=== PATIENT | female | born 1995 | race African-American/Black ===

== ENCOUNTER 2022-07-30 09:02 | Emergency (ER) | payer BC, SELFPAY ==
--- NOTE | ~2022-07-30 | XR_ITS ---
EXAMINATION: XR chest 2V 07/30/2022 09:43 INDICATION: Midline chest pain. PROCEDURE: 2 view chest COMPARISON: 05/14/2022 FINDINGS: The lungs are clear. The cardiomediastinal silhouette is within normal limits. There are no pleural effusions. There is no pneumothorax suspected. IMPRESSION: 1: NO ACUTE CARDIOPULMONARY DISEASE. Reviewed, dictated and finalized at location D.
--- NOTE | 2022-07-30 09:02 | ECG_ITS ---
Measurements Intervals [place] Rate: 88 P: 40 AL: 155 QRS: 70 QRSD: 74 T: 34 QT: 347 QTc: 421 Interpretive Statements SINUS RHYTHM DELAYED PRECORDIAL R/S TRANSITION BORDERLINE T WAVE ABNORMALITY- ANTERIOR LEADS BORDERLINE ECG NO PREVIOUS ECG AVAILABLE FOR COMPARISON Electronically Signed On 07-30-2022 9:33:19 CDT by Jairo Bah D.O.
[2022-07-30 09:08] VITALS: BP 144/99; PULSE 86; PULSE 90; PULSE 93; RESP 16; RESP 22; TEMP 36.8; O2SAT 100
[2022-07-30] MEDS: ASPIRIN 81 MG CHEWABLE TABLET 324 MG PO (09:16)
[2022-07-30 09:18] VITALS: O2SAT 100
--- NOTE | 2022-07-30 09:21 | ED.CHESTPAIN ---
HPI - Chest Pain General Chief Complaint: Chest Pain <CATHRYN Ortiz Last Filed: 07/30/22 11:03> Stated Complaint: chest pain <CATHRYN Ortiz Last Filed: 07/30/22 11:03> Time Seen by Provider: 07/30/22 09:03 <Mouna Galaviz PA-C - Last Filed: 07/30/22 11:03> History of Present Illness HPI narrative: 27-year-old female reports for evaluation of chest pain that occurred just prior to arrival. 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 States she thought it was due to her bra. She is unable to describe the pain, however states it lasted about 15 minutes this has since resolved. She states she wanted to come to the emergency department to make sure everything was okay. She does report feeling increasingly stressed since her mother about 1 year ago last May. She denies anxiety, cough, congestion, shortness of breath, fever, back pain, urinary complaints. <Mouna Galaviz PA-C - Last Filed: 07/30/22 11:03> Related Data Allergies/Adverse Reactions: Allergies Allergy/AdvReac Type Severity Reaction Status Date / Time Penicillins Allergy Rash Verified 07/30/22 09:17 <CATHRYN Ortiz Last Filed: 07/30/22 11:03> Review of Systems Review of Systems: CONSTITUTIONAL: Denies fever, chills EYES: Denies visual changes, redness, or discharge. ENT: Denies rhinorrhea, congestion, sore throat, or otalgia. CARDIOVASCULAR: See HPI RESPIRATORY: Denies cough or dyspnea. GASTROINTESTINAL: Denies abdominal pain, nausea, vomiting, or diarrhea. GENITOURINARY: Denies dysuria or hematuria. SKIN: Denies rash or itching. MUSCULOSKELETAL: Denies back pain, joint pain, or myalgia. NEUROLOGIC: Denies headache, numbness, dizziness, or weakness. PSYCHIATRIC: Denies anxiety or depression. <CATHRYN Ortiz Last Filed: 07/30/22 11:03> Exam Narrative: GENERAL: Well-appearing, in no acute distress. Patient resting on room and examined. She is pleasant and conversational. HEAD: Normocephalic EYES: PERRLA ENT: Nares clear. Mucous membranes moist. Oropharynx without tonsillar hypertrophy exudate or other lesions. NECK: Supple. CHEST: No respiratory distress. Clear to auscultation, no adventitious breath sounds. HEART: Regular rate and rhythm. No murmur heard. Normal peripheral pulses. ABDOMEN: Soft, nontender, normal active bowel sounds. EXTREMITIES: Normal range of motion. No edema. SKIN: Warm, dry, no rash. NEURO: No focal deficits. Alert and oriented x3. PSYCH: Normal mood and affect. <Mouna Galaviz PA-C - Last Filed: 07/30/22 11:03> Course CL[employer] AND WATCH ASSEMBLER/PA Physician Supervision For this patient encounter, I reviewed the CLOCK AND WATCH ASSEMBLER or PA documentation, treatment plan, and I was responsible for the medical decision making; and I had [id number] time with this patient. <Luiz Nunez MD - Last Filed: 07/31/22 11:58> Vital Signs Vital signs: Vital Signs Temperature 98.3 F 07/30/22 09:08 Pulse Rate 90 07/30/22 09:08 Respiratory Rate 22 H 07/30/22 09:08 Blood Pressure 144/99 H 07/30/22 09:08 Pulse Oximetry 100 07/30/22 09:08 Oxygen Delivery Room Air 07/30/22 09:08 Temperature 98.3 F 07/30/22 09:08 Pulse Rate 86 07/30/22 11:14 Respiratory Rate 19 07/30/22 11:14 Blood Pressure 123/77 07/30/22 11:14 Pulse Oximetry 100 07/30/22 11:14 Oxygen Delivery Room Air 07/30/22 09:18 <Mouna Galaviz PA-C - Last Filed: 07/30/22 11:03> Vital Signs Temperature 98.3 F 07/30/22 09:08 Pulse Rate 90 07/30/22 09:08 Respiratory Rate 22 H 07/30/22 09:08 Blood Pressure 144/99 H 07/30/22 09:08 Pulse Oximetry 100 07/30/22 09:08 Oxygen Delivery Room Air 07/30/22 09:08 Temperature 98.3 F 07/30/22 09:08 Pulse Rate 86 07/30/22 11:14 Respiratory Rate 19 05
[2022-07-30 09:28] LABS: Basophils Percent Auto 0.2 % (0.2-1.2); Eosinophils Percent Auto 0.3 % (0-4.4); Hematocrit 40.1 % (37.0-47.0); Hemoglobin 12.6 g/dL (12.0-15.0); Immature Granulocyte Absolute 0.02 K/mm3 (0.00-0.031); Immature Granulocyte Percent A 0.3 % (0-0.5); Lymphocytes Absolute Auto 1.67 K/mm3 (0.9-3.2); Lymphocytes Percent Auto 27.4 % (18.3-44.2); Mean Corpuscular HGB Conc 31.4 g/dl (32-36); Mean Corpuscular Hemoglobin 28.1 pg (26-34); Mean Corpuscular Volume 89.5 fl (80-100); Mean Platelet Volume 10.2 fl (7.4-10.4); Monocytes Absolute Auto 0.4 K/mm3 (0.1-0.6); Monocytes Percent Auto 6.4 % (2.6-8.5); Neutrophils Percent Auto 65.4 % (45.5-73.1); Platelet Count Result 270 k/mm3 (150-375); Red Blood Count 4.48 M/mm3 (4.2-5.4); Red Cell Distribution Width 14.1 % (11.5-14.5); White Blood Count 6.1 K/mm3 (4.5-10.0)
[2022-07-30 09:37] LABS: INR 0.9; Prothrombin Time 12.5 Seconds (11.1-14.7)
[2022-07-30 09:38] LABS: Partial Thromboplastin Time 26.6 SECONDS (22.3-36.8)
[2022-07-30 09:46] VITALS: BP 123/84; PULSE 95; RESP 18; O2SAT 100
[2022-07-30 10:03] LABS: D Dimer 0.28 ug/mL (<0.48)
[2022-07-30 10:07] LABS: Alanine Aminotransferase 27 U/L (6-35); Albumin Level 4.4 g/dL (3.5-5.1); Alkaline Phosphatase 53 U/L (38-126); Anion Gap 7 mmol/L (8-16); Aspartate Amino Transferase 27 U/L (14-36); Bilirubin,Total 0.9 mg/dL (0.2-1.3); Blood Urea Nitrogen 12 mg/dL (7-17); Calcium 9.3 mg/dL (8.4-10.2); Carbon Dioxide 29 mmol/L (22-30); Chloride 103 mmol/L (98-107); Estimated Glomerular Filt Rate > 60; Glucose 92 mg/dL (65-110); Lipase 29 U/L (23-300); Potassium 3.9 mmol/L (3.4-5.0); Sodium 139 mmol/L (137-145)
[2022-07-30 10:19] LABS: Troponin I < 0.012 ng/mL (0.000-0.034)
[2022-07-30 10:30] VITALS: BP 134/77; PULSE 84; RESP 22; O2SAT 100
[2022-07-30 11:14] VITALS: BP 123/77; PULSE 86; RESP 19; O2SAT 100
== END 2022-07-30 11:13 | disposition home or self-care (01) ==
PROVIDERS: Emergency Medicine; Emergency Provider Physician Assistant
DX: R07.89 Other chest pain (principal); R94.31 Abnormal electrocardiogram [ECG] [EKG]
CPT/HCPCS: 36415; 71046; 80053; 83690; 84484; 85025; 85380; 85610; 85730; 93005; 99284; A9270